=== PATIENT | female | born 1970 | race African-American/Black ===

== ENCOUNTER 2016-09-19 13:20 | Emergency (ER) | payer OTHER ==
[~2016-09-19 13:20] MED LIST: AMOXICILLIN PO; BALZIVA; BENTYL20 MG DOB; BENTYL20 MG PO; COLACE50 MG PO; DELSYM30 MG/5 ML PO; DICYCLOMINE HCL20 MG PO; EC-NAPROSYN500 MG PO; FLEXERIL PO; IBUPROFEN PO; KETOPROFEN PO; LOMOTIL TABLET1 TAB PO; LORTAB 7.5-5001 TAB PO; NAPROSYN500 MG PO; NO MEDICATIONS; PHENERGAN25 M1 DOB; PHENERGAN25 MG PO; PRILOSEC20 MG PO; VICODIN ES 7.51 EAC1 PO
[2016-09-19 14:36] LABS: URINE SOURCE CLEAN CATCH
[2016-09-19 14:42] LABS: URINE APPEARANCE CLEAR; URINE BILIRUBIN NEG (NEG); URINE BLOOD NEG (NEG); URINE COLOR YELLOW; URINE GLUCOSE NEG (NEG); URINE KETONE NEG (NEG); URINE LEUKOCYTE ESTERASE NEG (NEG); URINE NITRATE NEG (NEG); URINE PH 7.5 (5-8); URINE PROTEIN NEG (NEG); URINE SPECIFIC GRAVITY 1.013 (1.003-1.035); URINE UROBILINOGEN 0.2 MG/DL (NEG)
[2016-09-19 14:47] LABS: CULTURE INDICATED? NO
[2016-09-24 11:17] LABS: CHLAMYDIA TRACH Not Detected (Not Detected); N GONOR Not Detected (Not Detected)
== END 2016-09-19 15:11 | disposition home or self-care (01) ==
LOC: CED 13:20 → CFTX 13:20
PROVIDERS: Physician Assistant
DX: R30.0 Dysuria (principal); J44.9 Chronic obstructive pulmonary disease, unspecified; F41.9 Anxiety disorder, unspecified; G43.909 Migraine, unspecified, not intractable, without status migrainosus; F17.210 Nicotine dependence, cigarettes, uncomplicated; Z98.890 Other specified postprocedural states; Z90.49 Acquired absence of other specified parts of digestive tract; Z98.51 Tubal ligation status
CPT/HCPCS: 81003; 87491; 87591; 87808; 87905; 99283